=== PATIENT | female | born 1995 | race Hispanic/Latino ===

== ENCOUNTER 2016-05-17 03:49 | Inpatient (IN) | payer OTHER ==
[2016-05-17] VITALS (10 sets, daily range): BP systolic 104–125; BP diastolic 60–95
[~2016-05-17] VITALS: Ht 147.3 cm; Wt 66.7 kg
--- NOTE | 2016-05-17 04:00 | NUR ---
pt presents to OB c/o srom clear fluid at 0030 IUP 37.5 wks. pt breathing well through contractions, placed into bed after using bathroom and collecting urine specimen , oriented to room and plan of care. speculum exam and collection of fern and ROM+ specimen, SVE /-1. EFM applied with explanation, pt oriented to room and informed of plan of care.
[2016-05-17 04:23] LABS: URINE BILIRUBIN - DIPSTICK NEGATIVE (NEGATIVE); URINE BLOOD DIPSTICK NEGATIVE (NEGATIVE); URINE COLOR YELLOW; URINE GLUCOSE - DIPSTICK NEGATIVE (NEGATIVE); URINE KETONE NEGATIVE (NEGATIVE); URINE NITRITE - DIPSTICK NEGATIVE (Negative); URINE PROTEIN - DIPSTICK NEGATIVE (NEG-TRACE); URINE UROBILINOGEN - DIPSTICK 0.2 E.U./dL (0.2)
[2016-05-17 04:25] LABS: URINE CLARITY SLIGHT CLOUDY; URINE LEUK ESTERASE MODERATE (NEGATIVE)
[2016-05-17 04:27] LABS: BARBITURATES NEGATIVE (NEGATIVE); COCAINE NEGATIVE (NEGATIVE); METHADONE NEGATIVE (NEGATIVE); OXCYCODONE NEGATIVE (NEGATIVE); TETRAHYDROCANNABIONOL NEGATIVE (NEGATIVE); TRICYLIC ANTIDEPRESSANTS NEGATIVE (NEGATIVE)
[2016-05-17 04:31] LABS: URINE BACTERIA FEW hpf; URINE MUCUS FEW hpf (NONE-FEW); URINE RBC 0-2 RBC/hpf (0-5); URINE SQUAMOUS EPITHELIAL CELL MANY EPI/hpf (0-FEW)
--- NOTE | 2016-05-17 05:03 | NUR ---
Dr. Vee notified pt IUP 37.4 srom at 0030 confirmed in lab, SVE /-1 nikki every 3-4 min. New orders received, RN relayed pt would like an epidural, stated that will have to wait, pt may have Nubain.
[2016-05-17] MEDS ORDERED: IRON325 M1 PO (05:19)
[2016-05-17 06:08] LABS: HEMATOCRIT 35.1 % (37.0-47.0); HEMOGLOBIN 11.8 g/dl (12.0-16.0); IMMATURE GRANULOCYTES 0.8 % (0.0-1.0); MEAN CELL VOLUME 83.2 fL CALC (80.0-100.0); MEAN CORPUSCULAR HGB CONC 33.6 g/L CALC (32.0-36.0); NEUT# 8.88 thou/uL (2.00-7.15); RED BLOOD COUNT 4.22 mill/uL (4.20-5.60); RED CELL DISTRI WIDTH 14.4 % (11.5-15.5)
[2016-05-17 06:33] LABS: ALBUMIN 3.7 g/dL (3.2-5.0); ALKALINE PHOSPHATASE 173 u/l (38-126); ANION GAP 16 (6-22 (CALC)); BILIRUBIN, TOTAL 0.3 mg/dL (0.0-1.4); BUN 9 mg/dL (7-17); BUN/CREATININE RATIO 20 (12-20 (CALC)); CALCIUM 9.6 mg/dL (8.4-10.2); CARBON DIOXIDE 20 mmol/l (22-30); CHLORIDE 106 mmol/l (95-108); CREATININE 0.4 mg/dL (0.5-1.0); GFR > 60 ML/MIN (>=60 (CALC)); GFR FOR AFR.AMER. > 60 ML/MIN (>=60 (CALC)); GLUCOSE 78 mg/dL (65-105); POTASSIUM 3.9 mmol/l (3.5-5.1); SGOT/AST 17 u/l (14-36); SGPT/ALT 21 u/l (9-52); SODIUM 138 mmol/l (137-146); TOTAL PROTEIN 7.3 g/dL (6.3-8.2)
--- NOTE | 2016-05-17 06:54 | NUR ---
PT UP TO BATHROOM TO VOID.
--- NOTE | 2016-05-17 06:58 | NUR ---
PT BACK TO LEFT LATERAL POSITIONING AFTER VOIDING 500ML OF CLEAR YELLW URINE.
--- NOTE | 2016-05-17 07:16 | NUR ---
MATERNAL EKG LEADS AND PULSE OX APPLIED IN PREPARATION FOR EPIDURAL. LR BOLUS CONTINUES TO RUN.
--- NOTE | 2016-05-17 07:29 | NUR ---
PT UP TO BATHROOM.
--- NOTE | 2016-05-17 07:38 | NUR ---
DR. QUIROGA AT BEDSIDE, PT IS A RIM, CALLED FOR AN EPIDURAL AT THIS TIME, ANESTHESIA NOTIFIED.
--- NOTE | 2016-05-17 07:48 | NUR ---
PT DECIDED SHE DOES NOT WANT THE EPIDURAL AND WANTS TO PUSH AT THIS TIME. PT STARTED TO PUSH WITH EACH CONTRACTION.
--- NOTE | 2016-05-17 08:08 | NUR ---
OF FEMALE INFANT, SEE DELIVERY ROOM RECORD. PITOCIN 10 UNITS IN LR RUNNING AT BOLUS AT THIS TIME PER MD'S REQUEST.
--- NOTE | 2016-05-17 08:10 | NUR ---
BETWEEN 0730 AND 0808: UNABLE TO DETERMINE HEART RATE BASELINE DUE TO DIFFICULTY PICKING UP FHR DURING PUSHING WELL ACCELARATIONS TOWARDS THE END OF PUSHING. MODERATE VARIABILITY PRESENT.
--- NOTE | 2016-05-17 08:13 | NUR ---
LOCAL LIDOCAINE APPLIED IN PERINEUM PER DR. QUIROGA FOR 1ST DEGREE LACERATION REPAIR.
--- NOTE | 2016-05-17 08:49 | NUR ---
PT HAS SKIN TO SKIN AT THIS TIME, POSITIVE BONDING, VS/BLEEDING STABLE, SEE FUNDAL CHECKS.
--- NOTE | 2016-05-17 09:00 | NUR ---
PT ASSISTED TO BATHROOM, VOIDED 300ML, PERICARE GIVEN. PADS AND PANTIES PLACED, GOWN CHANGED. DERMOPLAST SPRAY USED WELL. PT THEN TRANSFERED TO ROOM 207 VIA WHEELCHAIR IN STABLE CONDITION. ORIENTED TO ROOM, INITAL TEACHING DONE, PT VERBALIZED UNDERSTANDING.
--- NOTE | 2016-05-17 10:10 | NUR ---
REPORT GIVEN TO Merna RAI RN TO ASSUME CARE OF PT.
--- NOTE | 2016-05-17 10:38 | NUR ---
DENIES PAIN OR NEED FOR MED. OOB WITHOUT DIFFICULTY AND VOIDED 500ML. IV SITE HEALTHY
--- NOTE | 2016-05-17 10:43 | NUR ---
IV AT 150ML/HOUR, NOT 125ML/HR. UTERUS FIRM, LOCHIA RUBRA LIGHT TO MODERATE, PT TO NOTIFY RN IF SHE FEELS IT IS INCREASING.
--- NOTE | 2016-05-17 11:09 | NUR ---
BASICS REVIEWED WITH MOTHER AND EXPRESSION OF COLOSTRUM DEMONSTRATED WITH PT PERMISSION. INFANT SLEEPY AT PRESENT AND HAS NOT NURSED YET. FAMILY AT BEDSIDE
--- NOTE | 2016-05-17 13:53 | NUR ---
RESTING. ASSESSMENT WNL. FLUIDS ENCOURAGED. PARTNER AND HIS TODDLER DAUGHTER VISITING.
--- NOTE | 2016-05-17 15:08 | NUR ---
SHOWER ENCOURAGED AND SHE PLANS SOON. SLEEPING IN OPEN CRIB AT BEDSIDE.
--- NOTE | 2016-05-17 17:43 | NUR ---
MEDICATED WITH MOTRIN FOR PERINEAL DISCOMFORT/INTERMITTENT PAIN OF 6. PERINEUM VISUALIZED AND EDEMA HAS DECREASED. PT HAS COLD PAD ON. FAMILY VISITING
--- NOTE | 2016-05-17 18:54 | NUR ---
REPORT TO Earl TOUSSAINT RN. PT RESTING.
--- NOTE | 2016-05-17 19:10 | NUR ---
PT AWAKE- LYING IN BED HOLDING INFANT, NO APPARENT DISTRESS NOTED, PT DENIES ANY CONCERNS AT THIS TIME, WILL CONT TO MONITOR.
--- NOTE | 2016-05-18 | NUR ---
PT LYING IN BED HOLDING INFANT, PT DENIES ANY PAIN , NEEDS OR CONCERNS AT THIS TIME.
[2016-05-18 04:10] VITALS: BP 106/69
--- NOTE | 2016-05-18 06:10 | NUR ---
PT RESTING QUIETLY IN BED- AROUSES EASILY, NO DISTRESS NOTED, LAB DRAWN ORDERED W/OUT INCIDENT, PT DENIES ANY PAIN OR CONCERNS AT THIS TIME, RE-ENCOURAGED TO CALL OUT FOR ANY NEEDS OR CONCERNS- VERBALIZES UNDERSTANDING.
[2016-05-18 06:13] LABS: HEMATOCRIT 31.5 % (37.0-47.0); HEMOGLOBIN 10.2 g/dl (12.0-16.0); IMMATURE GRANULOCYTES 0.7 % (0.0-1.0); MEAN CELL VOLUME 85.4 fL CALC (80.0-100.0); MEAN CORPUSCULAR HGB 27.6 pG CALC (26.0-32.0); MEAN CORPUSCULAR HGB CONC 32.4 g/L CALC (32.0-36.0); NEUT# 9.51 thou/uL (2.00-7.15); RED BLOOD COUNT 3.69 mill/uL (4.20-5.60); RED CELL DISTRI WIDTH 14.7 % (11.5-15.5)
--- NOTE | 2016-05-18 07:00 | NUR ---
PT LAYING IN BED, RESTING. ASSESSMENT DONE, STABLE. DISCUSSED PLAN OF CARE WITH PT FOR TODAY, PT VERBALIZED UNDERSTANDING. DENIES ANY PAIN OR NEEDS AT THIS TIME.
--- NOTE | 2016-05-18 08:30 | NUR ---
DR. QUIROGA AT BEDSIDE.
--- NOTE | 2016-05-18 10:30 | NUR ---
PT RESTING IN BED AT THIS TIME, DENIES ANY PAIN OR NEEDS. TGER VIDEOS STARTED FOR PT IN PREPARATION FOR DISCHARGE TOMORROW.
[2016-05-18 11:25] VITALS: BP 109/63
--- NOTE | 2016-05-18 11:25 | NUR ---
VS DONE, STABLE, DENIES ANY NEEDS. CONTINUES TO WATCH TGER VIDEOS.
--- NOTE | 2016-05-18 14:01 | NUR ---
PT SLEEPY, TRYING TO REST/TAKE A NAP. DENIES ANY PAIN OR NEEDS AT THIS TIME.
--- NOTE | 2016-05-18 16:58 | NUR ---
PT SITTING UP IN BED, FEEDING INFANT, POSITIVE BONDING. SHOWERED THIS AFTERNOON. DENIES ANY NEEDS.
--- NOTE | 2016-05-18 19:00 | NUR ---
INFANT AWAKE AND ALERT IN MOM'S ARMS, NO APPARENT DISTRESS OF ANY KIND NOTED, VSS, CARE DISCUSSED W/PARENTS- BOTH VERBALIZE UNDERSTANDING, WILL CONT TO MONITOR .
[2016-05-18 20:20] VITALS: BP 109/72
--- NOTE | 2016-05-18 20:20 | NUR ---
PT AWAKE- SITTING UP IN BED, DENIES ANY PAIN OR CONCERNS AT THIS TIME, VSS, ASSESSMENT WNL, PT ENOURAGED TO CALL OUT FOR ANY NEEDS OR CONCERNS, WILL CONT TO MONITOR.
--- NOTE | 2016-05-18 23:50 | NUR ---
PT AWAKE- LYING IN BED, DNEIES ANY NEEDS AT THIS TIME, NO DISTRESS OF ANY KIND NOTED, WILL CONT TO MONITOR.
[2016-05-19 04:06] VITALS: BP 108/69
--- NOTE | 2016-05-19 06:06 | NUR ---
PT AWAKE- SITTING UP IN BED AND HOLDING , PT DENIES ANY PAIN, NEEDS, OR CONCERNS AT THIS TIME.
--- NOTE | 2016-05-19 08:00 | NUR ---
LYING IN BED WITH INFANT. ASSESSMENT DONE CHARTED. COMPLAINS OF MILD PAIN AT UMBILICUS. NO SWELLING NOTED HOWEVER THE PATIENT COMPALINS OF MILD TENDERNESS WHEN TOUCHED. WILL NOTIFY MD ON ROUNDS. NO OTHER CONCERNS. BREAKFAST OFFERED.
[2016-05-19] MEDS ORDERED: IBUPROFEN600 MG PO (09:30)
--- NOTE | 2016-05-19 10:30 | NUR ---
STATES THAT SHE DOES NOT HAVE MILK. ENCOURAGED TO PUT TO BREAST AT EACH FEEDING. ALSO TO INCREASE ORAL INTAKE OF FLUIDS, AND RELAX DURING BREASFEEDING. WILL GIVE PRINTED MATERIAL ON SAME.
--- NOTE | 2016-05-19 10:41 | NUR ---
DISCHARGE PAPERS REVEIWED. PATIENT VERBALISE UNDERSTANDING. PRESCRIPTION GIVEN FOR MOTRIN. ALSO GIVEN PRINTED MATERIAL ON RUBELLA.
--- NOTE | 2016-05-19 13:10 | NUR ---
Discharge instructions given. Patient verbalizes understanding of same. Discharged in stable condition via Wheelchair to Home with significant other. All belongings sent with pt.
== END 2016-05-19 13:10 | disposition home or self-care (01) | DRG 775 ==
LOC: OBOP 03:49 → OB 03:50 → OBOP 04:14 → OB 04:15
PROC: 10E0XZZ Delivery of Products of Conception, External Approach (ICD-10-PCS; principal; 2016-05-17)
PROC: 0HQ9XZZ Repair Perineum Skin, External Approach (ICD-10-PCS; 2016-05-17)
DX: O42.02 Full-term premature rupture of membranes, onset of labor within 24 hours of rupture (principal); O70.0 First degree perineal laceration during delivery; Z3A.37 37 weeks gestation of pregnancy; Z37.0 Single live birth